=== PATIENT | male | born 1980 | race Caucasian/White ===

== ENCOUNTER 2017-01-18 12:11 | Emergency (ER) | payer SELFPAY ==
--- NOTE | ~2017-01-18 | CR58 ---
[facility]. [facility] A Service of [facility] & [facility] RADIOLOGY TEXT RESULTS PATIENT: GENE CONTE LOCATION: SED : 76 UNIT #: [id number] AGE: [address]: Davis Hsu DO SEX: M ORDER DR: [id number] [place] [id number] E MR#: [id number] Acc #: [id number] NAME: GENE CONTE : 1980 SEX: M STUDY DATE/TIME: 01/18/2017 12:40 UNIT: SED ROOM: STUDY DESCRIPTION: CR Cervical Spine 2 or 3 Views Ordering Physician: [facility] MEDICAL IMAGING REPORT This report is preliminary unless electronic signature is present. EXAM Cervical spine series INDICATIONS Neck pain after seizure today. TECHNIQUE 4 views cervical spine. COMPARISON STUDIES None. FINDINGS Cervical bodies have normal height. Alignment is preserved. Prevertebral soft tissues, craniocervical junction and dens are intact. IMPRESSION No acute findings. Dictated by... Anders Moseley M.D. THIS IS AN ELECTRONICALLY VERIFIED REPORT Anders Moseley M.D. at 01/19/2017 9:43 AM EED/pcl TD: 01/18/2017 14:40 JOB #: [id number] MEDICAL IMAGING REPORT Page 1 of 1
--- NOTE | ~2017-01-18 | CR229 ---
[facility] [[email or web address]]. [facility] A Service of [place] [facility] / [facility] RADIOLOGY TEXT RESULTS PATIENT: GENE CONTE LOCATION: SED : [birth year] UNIT #: [id number] AGE: [address]: Davis Hsu DO SEX: M ORDER DR: [id number] [place] [id number] E MR#: [id number] Acc #: [id number] NAME: GENE CONTE : 1980 SEX: M STUDY DATE/TIME: 01/18/2017 12:40 UNIT: SED ROOM: STUDY DESCRIPTION: CR Shoulder Min 2 View Lt Attending Physician: Davis Hsu Ordering Physician: Davis Hsu MEDICAL IMAGING REPORT This report is preliminary unless electronic signature is present. EXAM Left shoulder series INDICATIONS Left shoulder pain after seizure today. TECHNIQUE 3 views left shoulder. FINDINGS No acute fracture or dislocation. IMPRESSION No acute findings. Dictated by... Anders Moseley M.D. THIS IS AN ELECTRONICALLY VERIFIED REPORT Anders Moseley M.D. at 01/19/2017 9:43 AM EED/pcl TD: 01/18/2017 14:33 JOB #: [id number] MEDICAL IMAGING REPORT Page 1 of 1
--- NOTE | ~2017-01-18 | CR63 ---
[facility]. [facility] A Service of [facility] & [facility] RADIOLOGY TEXT RESULTS PATIENT: GENE CONTE LOCATION: SED : 78 UNIT #: [id number] AGE: [address]: Davis Hsu DO SEX: M ORDER DR: [id number] [place] [id number] E MR#: [id number] Acc #: [id number] NAME: GENE CONTE : 1980 SEX: M STUDY DATE/TIME: 01/18/2017 12:40 UNIT: SED ROOM: STUDY DESCRIPTION: CR Chest 2 View Ordering Physician: [facility] MEDICAL IMAGING REPORT This report is preliminary unless electronic signature is present. EXAM Two-view chest INDICATIONS Chest pain and difficulty breathing after seizure today. TECHNIQUE Frontal views of the chest. FINDINGS Heart size normal. No dense consolidation, effusion or pneumothorax. IMPRESSION No active process. Dictated by... Anders Moseley M.D. THIS IS AN ELECTRONICALLY VERIFIED REPORT Anders Moseley M.D. at 01/19/2017 9:43 AM EED/vin TD: 01/18/2017 14:39 JOB #: [id number] MEDICAL IMAGING REPORT Page 1 of 1
== END 2017-01-18 13:38 | disposition home or self-care (01) ==
LOC: SED 12:11
DX: S16.1XXA Strain of muscle, fascia and tendon at neck level, initial encounter (principal); S46.912A Strain of unspecified muscle, fascia and tendon at shoulder and upper arm level, left arm, initial encounter; S13.4XXA Sprain of ligaments of cervical spine, initial encounter; F17.210 Nicotine dependence, cigarettes, uncomplicated; W22.8XXA Striking against or struck by other objects, initial encounter
CPT/HCPCS: 71020; 72040; 73030; 96372; 99284; J1885; J2360